=== PATIENT | male | born 1980 | race Two or more races ===

== ENCOUNTER 2021-02-16 00:37 | Emergency (ER) | payer SELFPAY ==
[~2021-02-16] VITALS: Ht 172.7 cm; Wt 90.7 kg
[2021-02-16 02:42] LABS: Basophils # (auto) 0 10 ^3/uL (0-0.2); Eosinophils # (auto) 0 10 ^3/uL (0-0.8); Hemoglobin 8.2 g/dL (13.5-17.5); Monocytes # (auto) 0.3 10 ^3/uL (0-1.3); Neutrophils # (auto) 3.7 10 ^3/uL (1.6-8.6); Red Blood Cells 3.52 10^6/uL (4.5-5.90)
[2021-02-16 02:44] LABS: Basophils % (auto) 0.8 % (0.0-2.0); Eosinophils % (auto) 0.6 % (0.0-7.0); Hematocrit 26.4 % (41.0-53.0); Lymphocytes # (auto) 0.7 10 ^3/uL (0.4-5.4); Lymphocytes % (auto) 14.4 % (10.0-50.0); Mean Corpuscular Hemoglobin 23.2 pg (28.0-32.0); Mean Corpuscular Hgb Conc. 30.9 g/dL (32.0-36.0); Mean Corpuscular Volume 75.2 fL (80.0-100.0); Neutrophils % (auto) 77.2 % (37.0-80.0); Nucleated Red Blood Cells % 0.1 %; Platelet Count (auto) 125 10^3/uL (140-450); White Blood Cell 4.7 10^3/uL (4.4-10.8)
[2021-02-16 03:00] LABS: Salicylate < 1.7 mg/dL (2.8-20.0)
[2021-02-16 03:01] LABS: Alcohol, Urine < 3.0 mg/dL (0-10); Amphetamine Screen, Urine POSITIVE (NEGATIVE); Barbiturate Scree,Urine NEGATIVE (NEGATIVE); Benzodiazephine Screen, Urine NEGATIVE (NEGATIVE); Cocaine Screen, Urine NEGATIVE (NEGATIVE); Opiate Scree,Urine NEGATIVE (NEGATIVE); Phencyclidine Screen, Urine NEGATIVE (NEGATIVE)
[2021-02-16 03:02] LABS: INR 1.1 (0.9-1.15); Partial Thromboplastin Time 21.4 sec (23.0-31.2)
[2021-02-16 03:03] LABS: Cannabinoid Screen, Urine POSITIVE (NEGATIVE)
[2021-02-16 03:03] LABS: Acetaminophen < 2.0 ug/mL (10-30)
[2021-02-16 03:06] LABS: Alanine Aminotransferase 58 U/L (16-61); Anion Gap 10 (5-15); Aspartate Aminotransferase 34 U/L (15-37); BUN/Creatinine Ratio 46.4; Blood Alcohol < 3.0 mg/dL (0-5); Blood Urea Nitrogen 32 mg/dL (7-18); Calcium 8.2 mg/dL (8.5-10.1); Carbon Dioxide 25 mmol/L (21-32); Chloride 102 mmol/L (98-107); GFR African American 163 mL/min; GFR Non-African American 135 mL/min; Glucose 205 mg/dL (74-106); Potassium 4.2 mmol/L (3.5-5.1); Sodium 137 mmol/L (136-145)
[2021-02-16 03:10] VITALS: BP 116/57
[2021-02-16 03:19] LABS: Alkaline Phosphatase 92 U/L (45-117); Bilirubin, Total 0.5 mg/dL (0.2-1.0); Total Protein 6.5 g/dL (6.4-8.2)
== END 2021-02-16 05:18 | disposition home or self-care (01) ==
LOC: EDBD 00:37 → ER 00:37
DX: G40.909 Epilepsy, unspecified, not intractable, without status epilepticus (principal); E11.65 Type 2 diabetes mellitus with hyperglycemia; F15.10 Other stimulant abuse, uncomplicated
CPT/HCPCS: 36415; 70450; 71045; 80053; 80307; 80320; 80329; 82962; 83735; 84484; 85025; 85610; 85730; 93005